=== PATIENT | female | born 1965 | race Caucasian/White ===

== ENCOUNTER → 2017-05-06 | Outpatient (REF) | payer OTHER | LOC: M LAB REF 12:59 | PROVIDERS: ATTEND Internal Medicine | DX: E78.5 Hyperlipidemia, unspecified (principal) ==

== ENCOUNTER 2017-08-26 12:08 | Day surgery (SDC) | payer OTHER ==
[2017-08-26] MEDS: NS 1,000 ML IV (12:30)
[2017-08-26] MEDS ORDERED: PROPOFOL 200 MG/20 ML VIAL As Ordered ×2 (14:00→14:19)
[2017-08-26] MEDS ORDERED: LIDOCAINE 2% INJ 100 MG/5 ML SYRINGE As Ordered (14:20)
== END 2017-08-26 15:16 | disposition home or self-care (01) ==
LOC: M OPP 12:08
DX: Z12.11 Encounter for screening for malignant neoplasm of colon (principal); K64.0 First degree hemorrhoids; Z83.71 Family history of colonic polyps; G47.30 Sleep apnea, unspecified; I10 Essential (primary) hypertension; E78.00 Pure hypercholesterolemia, unspecified; K21.9 Gastro-esophageal reflux disease without esophagitis; Z87.19 Personal history of other diseases of the digestive system; N30.11 Interstitial cystitis (chronic) with hematuria; Z79.84 Long term (current) use of oral hypoglycemic drugs; Z79.899 Other long term (current) drug therapy
CPT/HCPCS: 45378